=== PATIENT | male | born 1990 | race Caucasian/White ===

== ENCOUNTER 2017-12-30 13:36 | Emergency (ER) | payer MEDICAID ==
[~2017-12-30] VITALS: Ht 170.2 cm; Wt 72.7 kg
[~2017-12-30 13:36] MED LIST: CHOL400T32 PO; DILT180C53; GABA300C PO; HYDR-569 PO; LABE100T5 PO; LANTUS SQ; NOVLG SQ; TRAZ-219 PO
[2017-12-30 14:19] LABS: BASOPHILS # (AUTO) 0.1 X10'3 (0-0.2); BASOPHILS % (AUTO) 0.9 % (0-1); EOSINOPHILS # (AUTO) 0.6 X10'3 (0-0.9); EOSINOPHILS % (AUTO) 8.8 % (0-6); HEMATOCRIT 26.2 % (42.0-52.0); HEMOGLOBIN 8.8 g/dl (14.0-17.9); LYMPHOCYTES # (AUTO) 1.4 X10'3 (1.1-4.8); LYMPHOCYTES % (AUTO) 20.8 % (21-51); MEAN CORPUSCULAR HEMOGLOBIN 30.1 PG (27.0-31.0); MEAN CORPUSCULAR HGB CONC 33.5 % (33.0-36.5); MEAN CORPUSCULAR VOLUME 89.6 FL (78-98); MEAN PLATELET VOLUME 6.7 FL (7.4-10.4); MONOCYTES # (AUTO) 0.3 X10'3 (0-0.9); MONOCYTES % (AUTO) 5.2 % (2-12); NEUTROPHILS # (AUTO) 4.2 X10'3 (1.8-7.7); NEUTROPHILS % (AUTO) 64.3 % (42-75); PLATELET COUNT 244 X10'3 (140-440); RED BLOOD COUNT 2.92 X10'6 (4.70-6.10); RED CELL DISTRIBUTION WIDTH 16.3 % (11.5-14.5); WHITE BLOOD COUNT 6.6 X10'3 (4.5-11.0)
[2017-12-30 14:35] LABS: ALANINE AMINOTRANSFERASE 20 U/L (12-78); ALBUMIN 2.2 G/DL (3.4-5.0); ALBUMIN/GLOBULIN RATIO 0.7 (1.1-1.5); ALKALINE PHOSPHATASE 73 IU/L (46-116); ANION GAP 14 (8-16); ASPARTATE AMINO TRANSFERASE 23 U/L (10-37); BILIRUBIN,TOTAL 0.4 MG/DL (0.1-1.0); BLOOD UREA NITROGEN 30 MG/DL (7-18); BUN/CREATININE RATIO 4.2 (5.4-32.0); CALCIUM 7.7 MG/DL (8.5-10.1); CHLORIDE 104 MMOL/L (99-107); GLUCOSE 259 MG/DL (70-104); POTASSIUM 4.3 MMOL/L (3.5-5.1); SODIUM 139 MMOL/L (135-145); TOTAL CARBON DIOXIDE 20.6 MMOL/L (24-32); TOTAL PROTEIN 5.4 G/DL (6.4-8.2); eGFR 9 ML/MIN
[2017-12-30 14:59] LABS: ETHANOL < 0.010 GM/DL (0.0-0.010)
[2017-12-30] MEDS ORDERED: ondansetron 4mg rapidly disintigrating tab PO ONE (15:00)
[2017-12-30] MEDS ORDERED: morphine 4 MG/ML inj SYRINge IM ONE (15:00)
[2017-12-30 15:06] LABS: CLARITY,URINE CLEAR (Clear); COLOR,URINE YELLOW (Yellow); GLUCOSE, URINE 250 mg/dl (Neg); KETONES,URINE NEGATIVE (Neg); LEUKOCYTE ESTERASE ,URINE NEGATIVE (Neg); NITRITES, URINE NEGATIVE (Neg); OCCULT BLOOD,URINE MODERATE (Neg); PROTEIN,URINE >=300 mg/dl (Neg); UROBILINOGEN,URINE 0.2 E.U/dL (0.2-1.0)
[2017-12-30 15:13] LABS: UA COLLECTION TYPE CLN CATCH MIDSTREAM
[2017-12-30 15:14] LABS: MUCUS STRANDS FEW /LPF (Neg); SQUAMOUS EPITHELIAL CELL,UR MODERATE /LPF (FEW)
[2017-12-30 15:15] LABS: BACTERIA,URINE 2+ /HPF (Neg); RBC,URINE 0-2 /HPF (0-2); URINE AMPHETAMINE SCREEN NEGATIVE (Neg); URINE BARBITUATE SCREEN NEGATIVE (Neg); URINE BENZODIAZEPINES SCREEN NEGATIVE (Neg); URINE CANNABINOID SCREEN NEGATIVE (Neg); URINE COCAINE SCREEN NEGATIVE (Neg); URINE METHADONE SCREEN NEGATIVE (Neg); URINE OPIATE SCREEN POSITIVE (Neg); URINE PHENCYCLIDINE SCREEN NEGATIVE (Neg); WBC,URINE 20-30 /HPF (0-4)
[2017-12-30] MEDS ORDERED: morphine 4 MG/ML inj SYRINge IV ONE (15:35)
[2017-12-30] MEDS ORDERED: ondansetron/PF 4mg/2ml inj IV ONE (15:35)
[2017-12-30] MEDS ORDERED: ONDA8TAB9 PO (17:38)
[2017-12-30] MEDS ORDERED: HYDR-3965 PO (17:48)
[2017-12-30] MEDS ORDERED: BUPR150T8 PO (17:51)
[2017-12-30 18:03] VITALS: BP 176/85
== END 2017-12-30 18:05 | disposition home or self-care (01) ==
LOC: ER 13:36
DX: F32.9 Major depressive disorder, single episode, unspecified (principal); E11.22 Type 2 diabetes mellitus with diabetic chronic kidney disease; I13.2 Hypertensive heart and chronic kidney disease with heart failure and with stage 5 chronic kidney disease, or end stage renal disease; I50.9 Heart failure, unspecified; N18.6 End stage renal disease; Z99.2 Dependence on renal dialysis; E78.00 Pure hypercholesterolemia, unspecified; F12.90 Cannabis use, unspecified, uncomplicated; F15.90 Other stimulant use, unspecified, uncomplicated; Z79.4 Long term (current) use of insulin; Z79.899 Other long term (current) drug therapy; Z56.0 Unemployment, unspecified
CPT/HCPCS: 36415; 74176; 80053; 80305; 80320; 81001; 84443; 85025; 93005; 96372; 99285; J2270

== ENCOUNTER 2018-04-27 08:13 | Day surgery (SDC) | payer MEDICAID ==
[~2018-04-27] VITALS: Ht 170.2 cm; Wt 74.6 kg
[~2018-04-27 08:13] MED LIST changes: +HYDR-4383 PO; -HYDR-569 PO; +ONDA8TAB9 PO
[2018-04-27 08:30] VITALS: BP 128/79
[2018-04-27] MEDS ORDERED: midazolam 2 mg/2 ml injection IV PRN (09:15)
[2018-04-27] MEDS ORDERED: fentaNYL/PF 50MCG/1 ML 2ML syringe IV PRN (09:15)
[2018-04-27] MEDS ORDERED: heparin 1,000 units/ml 10ml inj ICATH ONE (09:15)
[2018-04-27] MEDS ORDERED: LIDOcaine 1%/PF 5ML 10 MG/ML VIAL SQ ONE (09:15)
[2018-04-27] MEDS ORDERED: LIDOcaine 1%/PF 5ML 10 MG/ML VIAL ONE (09:23)
[2018-04-27] MEDS ORDERED: heparin 1,000unit/ml 10ml vial 10 ML ONE (09:28)
[2018-04-27] MEDS ORDERED: midazolam 2 mg/2 ml injection ONE (09:29)
[2018-04-27] MEDS ORDERED: fentaNYL/PF 50MCG/1 ML 2ML syringe ONE (09:29)
[2018-04-27] MEDS ORDERED: LACT10SO PO (09:46)
[2018-04-27] MEDS ORDERED: AMIN700T PO (09:46)
[2018-04-27] MEDS ORDERED: LISI40TA4 PO (09:46)
[2018-04-27] MEDS ORDERED: MUPI22OI30 TOP (09:46)
[2018-04-27] MEDS ORDERED: LABE100T5 PO (09:46)
[2018-04-27] MEDS ORDERED: PHO667C PO (09:46)
[2018-04-27] MEDS ORDERED: FURO-150 PO (09:46)
[2018-04-27] MEDS ORDERED: GABA800T PO (09:46)
[2018-04-27] MEDS ORDERED: HYDR-4353 PO (09:46)
[2018-04-27] MEDS ORDERED: TRAZ-219 PO (09:46)
[2018-04-27] MEDS ORDERED: MEGE400O2 PO (09:46)
[2018-04-27 09:55] LABS: BASOPHILS # (AUTO) 0.1 X10'3 (0-0.2); BASOPHILS % (AUTO) 0.7 % (0-1); EOSINOPHILS # (AUTO) 0.7 X10'3 (0-0.9); EOSINOPHILS % (AUTO) 7.3 % (0-6); HEMOGLOBIN 7.5 g/dl (14.0-17.9); LYMPHOCYTES # (AUTO) 1.4 X10'3 (1.1-4.8); LYMPHOCYTES % (AUTO) 14.2 % (21-51); MEAN CORPUSCULAR HEMOGLOBIN 28.9 PG (27.0-31.0); MEAN CORPUSCULAR HGB CONC 32.6 % (33.0-36.5); MEAN CORPUSCULAR VOLUME 88.8 FL (78-98); MONOCYTES # (AUTO) 0.7 X10'3 (0-0.9); MONOCYTES % (AUTO) 6.9 % (2-12); NEUTROPHILS # (AUTO) 6.7 X10'3 (1.8-7.7); NEUTROPHILS % (AUTO) 70.9 % (42-75); PLATELET COUNT 349 X10'3 (140-440); RED BLOOD COUNT 2.59 X10'6 (4.70-6.10); RED CELL DISTRIBUTION WIDTH 16.5 % (11.5-14.5); WHITE BLOOD COUNT 9.5 X10'3 (4.5-11.0)
[2018-04-27 10:05] LABS: ALBUMIN 2.4 G/DL (3.4-5.0); ANION GAP 21 (8-16); BLOOD UREA NITROGEN 58 MG/DL (7-18); BUN/CREATININE RATIO 3.7 (5.4-32.0); CALCIUM 7.8 MG/DL (8.5-10.1); CHLORIDE 98 MMOL/L (99-107); CREATININE 15.51 MG/DL (0.60-1.10); GLUCOSE 197 MG/DL (70-104); POTASSIUM 5.1 MMOL/L (3.5-5.1); SODIUM 141 MMOL/L (135-145); TOTAL CARBON DIOXIDE 22.3 MMOL/L (24-32); eGFR 4 ML/MIN
[2018-04-27 10:20] VITALS: BP 126/83
[2018-04-27] MEDS ORDERED: HYDROcodone/acetaminophen 10/325mg tab PO PRN (11:00)
[2018-04-27 11:16] VITALS: BP 139/83
== END 2018-04-27 11:25 | disposition home or self-care (01) ==
LOC: SSTAY O 08:13
PROVIDERS: ATTEND Radiology Diagnostic Radiology
DX: E10.22 Type 1 diabetes mellitus with diabetic chronic kidney disease (principal); I12.0 Hypertensive chronic kidney disease with stage 5 chronic kidney disease or end stage renal disease; N18.6 End stage renal disease; E10.42 Type 1 diabetes mellitus with diabetic polyneuropathy; F32.9 Major depressive disorder, single episode, unspecified; F41.8 Other specified anxiety disorders; F43.10 Post-traumatic stress disorder, unspecified; H54.7 Unspecified visual loss; F17.210 Nicotine dependence, cigarettes, uncomplicated; Z99.2 Dependence on renal dialysis; Z86.2 Personal history of diseases of the blood and blood-forming organs and certain disorders involving the immune mechanism; Z86.69 Personal history of other diseases of the nervous system and sense organs; Z79.891 Long term (current) use of opiate analgesic; Z79.4 Long term (current) use of insulin; Z79.899 Other long term (current) drug therapy
CPT/HCPCS: 36415; 36558; 76937; 77001; 80048; 82948; 85025; 99152; 99153; C1750; J1644; J2001; J2250; J3010; A4620; A9270; C1894

== ENCOUNTER 2018-05-04 07:16 | Inpatient (IN) | payer MEDICAID | END 2018-05-08 19:15 | disposition home or self-care (01) | LOC: PCU 3S 07:16 ==

== ENCOUNTER 2018-12-26 15:54 | Emergency (ER) | payer MEDICAID ==
[~2018-12-26] VITALS: Ht 170.2 cm; Wt 65.0 kg
[~2018-12-26 15:54] MED LIST changes: -DILT180C53; +DILT240C51 PO; +FURO40TA4 PO; -GABA300C PO; +GABA600T13 PO; +HYDR-4353 PO; -HYDR-4383 PO; +INSU100V9 SQ; -LANTUS SQ; +LISI40TA4 PO; -ONDA8TAB9 PO; -TRAZ-219 PO
[2018-12-26 16:33] LABS: BASOPHILS # (AUTO) 0.1 X10'3 (0-0.2); BASOPHILS % (AUTO) 1.2 % (0-1); EOSINOPHILS # (AUTO) 0.6 X10'3 (0-0.9); EOSINOPHILS % (AUTO) 8.1 % (0-6); HEMATOCRIT 36.2 % (42.0-52.0); HEMOGLOBIN 12.2 g/dl (14.0-17.9); LYMPHOCYTES # (AUTO) 1.9 X10'3 (1.1-4.8); LYMPHOCYTES % (AUTO) 27.3 % (21-51); MEAN CORPUSCULAR HEMOGLOBIN 32.9 PG (27.0-31.0); MEAN CORPUSCULAR HGB CONC 33.8 g/dL (33.0-36.5); MEAN CORPUSCULAR VOLUME 97.6 FL (78-98); MEAN PLATELET VOLUME 8.5 FL (7.4-10.4); MONOCYTES # (AUTO) 0.6 X10'3 (0-0.9); MONOCYTES % (AUTO) 8.2 % (2-12); NEUTROPHILS # (AUTO) 3.9 X10'3 (1.8-7.7); NEUTROPHILS % (AUTO) 55.2 % (42-75); PLATELET COUNT 183 X10'3 (140-440); RED BLOOD COUNT 3.71 X10'6 (4.70-6.10); RED CELL DISTRIBUTION WIDTH 15.6 % (11.5-14.5); WHITE BLOOD COUNT 7.1 X10'3 (4.5-11.0)
[2018-12-26 16:54] LABS: PARTIAL THROMBOPLASTIN TIME 28 SECONDS (22-32)
[2018-12-26 16:57] LABS: ALANINE AMINOTRANSFERASE 11 U/L (12-78); ALBUMIN 3.3 G/DL (3.4-5.0); ALKALINE PHOSPHATASE 102 IU/L (46-116); ANION GAP 7 (8-16); ASPARTATE AMINO TRANSFERASE 20 U/L (10-37); BILIRUBIN,TOTAL 0.4 MG/DL (0.1-1.0); BLOOD UREA NITROGEN 33 MG/DL (7-18); BUN/CREATININE RATIO 3.8 (5.4-32.0); CHLORIDE 101 MMOL/L (99-107); GLUCOSE 153 MG/DL (70-104); SODIUM 139 MMOL/L (135-145); TOTAL CARBON DIOXIDE 31.1 MMOL/L (24-32); TOTAL PROTEIN 6.5 G/DL (6.4-8.2); eGFR 8 ML/MIN
[2018-12-26 17:01] LABS: POTASSIUM 5.5 MMOL/L (3.5-5.1)
[2018-12-26] MEDS ORDERED: normal saline 1000ML IV soln IVB ONE (17:35)
[2018-12-26] MEDS ORDERED: dextrose 50%-water 50ml dispensing syringe IV ONE (17:40)
[2018-12-26] MEDS ORDERED: insulin regular, human 10 units/0.1 ml syringe IV ONE (17:40)
[2018-12-26] MEDS ORDERED: sodium bicarbonate (0.9mEq/ml) 44.6 mEq/50ml syringe IV ONE (17:40)
[2018-12-26] MEDS ORDERED: sodium bicarbonate (8.4%) inj. 1 MEQ/ML ML IV ONE (17:55)
[2018-12-26 18:01] LABS: MAGNESIUM 2.5 MG/DL (1.5-2.4); PHOSPHORUS 4.7 MG/DL (2.3-4.5)
[2018-12-26] MEDS ORDERED: morphine 4 MG/ML inj SYRINge IV ONE (18:05)
[2018-12-26] MEDS ORDERED: ketorolac trometh. 30mg/ml inj. IV ONE (18:05)
[2018-12-26 18:47] VITALS: BP 169/99
== END 2018-12-26 19:18 | disposition home or self-care (01) ==
LOC: ER 15:54
DX: R07.89 Other chest pain (principal); E87.5 Hyperkalemia; M79.621 Pain in right upper arm; I13.2 Hypertensive heart and chronic kidney disease with heart failure and with stage 5 chronic kidney disease, or end stage renal disease; E11.22 Type 2 diabetes mellitus with diabetic chronic kidney disease; N18.6 End stage renal disease; I50.9 Heart failure, unspecified; E78.00 Pure hypercholesterolemia, unspecified; F17.210 Nicotine dependence, cigarettes, uncomplicated; F12.90 Cannabis use, unspecified, uncomplicated; F15.90 Other stimulant use, unspecified, uncomplicated; Z99.2 Dependence on renal dialysis; Z56.0 Unemployment, unspecified; Z79.4 Long term (current) use of insulin; Z79.899 Other long term (current) drug therapy
CPT/HCPCS: 36415; 71045; 80053; 83605; 83735; 84100; 84145; 84484; 85025; 85610; 85730; 87040; 93005; 96374; 96375; 99285; J1815; J1885; J2270

== ENCOUNTER 2019-02-10 21:01 | Inpatient (IN) | payer MEDICAID ==
[~2019-02-10] VITALS: Ht 170.2 cm; Wt 65.9 kg
--- NOTE | 2019-02-10 21:27 | NUR ---
PT REFUSED TO LET EMS PUT IV LINE IN PLACE. PT CURRENTLY REFUSING TO LET STAFF PLACE LINE OR DRAW LABS UNLESS HE CAN HAVE FOOD FIRST. PT IS DIABETIC. BLOOD GLUCOSE 112
--- NOTE | 2019-02-10 21:45 | NUR ---
PT CONTINUES TO REFUSE CARE UNLESS HE GETS FOOD. PT INFORMED THAT HE COULD NOT HAVE FOOD UNTIL CLEARED BY THE MD, IN THE EVENT THAT HE MIGHT NEED A PROCEDURE REQUIRING HIM TO HAVE AN EMPTY STOMACH. PT BECAME VERY IRATE AND ABUSIVE. PT WAS INFORMED THAT HE WAS WELCOME TO STAY AND BE TREATED, BUT HE WOULD NOT BE GETTING FOOD AT THIS TIME.
--- NOTE | 2019-02-10 21:54 | NUR ---
PT ALLOWED X RAY AND LAB TO COMPLETE TASKS
[2019-02-10] MEDS ORDERED: LORazepam 2 mg/ml vial IV ONE (22:05)
[2019-02-10] MEDS ORDERED: CefTRIAXone/D5W-Rocephin 1gm 50 ML IV ONE ×2 (22:05→23:35)
[2019-02-10 22:15] LABS: PARTIAL THROMBOPLASTIN TIME 31 SECONDS (22-32)
[2019-02-10 22:18] LABS: ALANINE AMINOTRANSFERASE 24 U/L (12-78); ALBUMIN 3.6 G/DL (3.4-5.0); ALKALINE PHOSPHATASE 137 IU/L (46-116); ANION GAP 5 (8-16); ASPARTATE AMINO TRANSFERASE 28 U/L (10-37); BILIRUBIN,TOTAL 0.8 MG/DL (0.1-1.0); BLOOD UREA NITROGEN 11 MG/DL (7-18); BUN/CREATININE RATIO 3.4 (5.4-32.0); CALCIUM 9.4 MG/DL (8.5-10.1); CHLORIDE 101 MMOL/L (99-107); CREATININE 3.28 MG/DL (0.60-1.10); GLUCOSE 100 MG/DL (70-104); SODIUM 143 MMOL/L (135-145); TOTAL CARBON DIOXIDE 36.7 MMOL/L (24-32); TOTAL PROTEIN 7.3 G/DL (6.4-8.2); eGFR 23 ML/MIN
[2019-02-10] MEDS ORDERED: iohexol 350MG/ML 100ml bottle IV ONE (22:30)
--- NOTE | 2019-02-10 22:44 | NUR ---
PT REFUSED WHILE ATTEMPTING IV, PT STATED HE "WANTED IT OUT".
[2019-02-11 00:05] LABS: HEMOGLOBIN 10.7 g/dl (14.0-17.9); MEAN CORPUSCULAR HGB CONC 34.7 g/dL (33.0-36.5); RED BLOOD COUNT 3.14 X10'6 (4.70-6.10); WHITE BLOOD COUNT 5.1 X10'3 (4.5-11.0)
[2019-02-11 00:06] LABS: BASOPHILS % (AUTO) 0.8 % (0-1); EOSINOPHILS # (AUTO) 0.3 X10'3 (0-0.9); EOSINOPHILS % (AUTO) 5.4 % (0-6); HEMATOCRIT 30.7 % (42.0-52.0); LYMPHOCYTES # (AUTO) 1.2 X10'3 (1.1-4.8); LYMPHOCYTES % (AUTO) 23.6 % (21-51); MEAN CORPUSCULAR VOLUME 97.8 FL (78-98); MEAN PLATELET VOLUME 8.1 FL (7.4-10.4); MONOCYTES # (AUTO) 0.5 X10'3 (0-0.9); MONOCYTES % (AUTO) 10.5 % (2-12); NEUTROPHILS % (AUTO) 59.7 % (42-75); PLATELET COUNT 119 X10'3 (140-440); RED CELL DISTRIBUTION WIDTH 15.8 % (11.5-14.5)
[2019-02-11] MEDS ORDERED: ondansetron/PF 4mg/2ml inj IV PRN (00:10)
[2019-02-11] MEDS ORDERED: glucagon, human recombinant 1mg kit SUBCUT PRN (00:25)
[2019-02-11] MEDS ORDERED: MESSAGE TO PHARMACY PO ONE (00:25)
[2019-02-11] MEDS ORDERED: dextrose ORAL solution 15 GM/59 ML bottle PO PRN (00:25)
[2019-02-11] MEDS ORDERED: dextrose 50%-water 50ml dispensing syringe IV PRN ×2 (00:25)
[2019-02-11] MEDS ORDERED: FURO80TA3 PO (02:18)
[2019-02-11] MEDS ORDERED: AMLO10TA4 PO (02:18)
[2019-02-11] MEDS ORDERED: HYDR100T27 PO (02:22)
[2019-02-11] MEDS ORDERED: ONDA4TAB6 PO (02:22)
[2019-02-11] MEDS ORDERED: TRAZ-219 PO (02:25)
[2019-02-11] MEDS ORDERED: CARV25TA2 PO (02:28)
--- NOTE | 2019-02-11 02:54 | NUR ---
Patient in room ED 4. I have received report from Fabby MALONEY ED and had the opportunity to ask questions and assume patient care. Patient is still has not arrived on the unit yet.
--- NOTE | 2019-02-11 02:55 | NUR ---
Pt brought to room 341 via w/c. oriented to room and routine. Addendum: 02/11/19 at 0307 by Zarina Christian RN Amended: Links added.
[2019-02-11 03:00] VITALS: BP 179/119
[2019-02-11] MEDS: HYDROcodone/acetaminophen 5mg/325mg tablet PO PRN ×2 (03:32→08:39)
--- NOTE | 2019-02-11 03:48 | NUR ---
LEGALLY BLIND. SHOWED PT CALL LIGHT SYSTEM, BED CONTROLS, TABLE AND WHERE THINGS ARE PLACED. PT IS AWARE AND ABLE TO USE CALL LIGHT AND CONTROLS Addendum: 02/11/19 at 0349 by Zarina Christian RN Amended: Links added.
--- NOTE | 2019-02-11 04:15 | NUR ---
patient is on dialysis and stated that he does not produce enough urine. His normal voiding pattern is every after three days. Addendum: 02/11/19 at 0421 by Amber Brown RN Amended: Links added.
--- NOTE | 2019-02-11 06:50 | NUR ---
Problems reprioritized. Patient report given, questions answered & plan of care reviewed with Bernice MALONEY.
[2019-02-11 08:00] VITALS: BP 179/118
[2019-02-11] MEDS: CefTRIAXone 2gm/D5W 50ml 50 ML IV SCH (08:33)
[2019-02-11] MEDS: insulin Lispro (HumaLOG) vial - multi-dose SQ SCH ×3 (08:37→22:47)
--- NOTE | 2019-02-11 09:00 | NUR ---
Pt. b/p noted. has bp Meds on med req. TRANG Whelan notified and completed med req. Will administer BP Meds and reevaluate.
[2019-02-11] MEDS ORDERED: FLU VACC QS2019-20 36MOS UP/PF 60 MCG/0.5 ML SYRINGE IMVAC ONE (10:00)
[2019-02-11] MEDS ORDERED: pneumococcal 23-VAL P-sac vacc 25 mcg/0.5ml vial IMVAC ONE (10:00)
[2019-02-11 10:37] LABS: PHOSPHORUS 3.9 MG/DL (2.3-4.5)
[2019-02-11] MEDS ORDERED: carVEDilol 12.5mg tablet PO ONE (11:00)
[2019-02-11] MEDS ORDERED: furosemide 40mg tablet PO ONE (11:00)
[2019-02-11] MEDS ORDERED: hydrALAZINE 25 MG tablet PO ONE (11:00)
[2019-02-11] MEDS ORDERED: diltiazem CD 120mg capsule (once-daily) PO ONE (11:00)
[2019-02-11] MEDS ORDERED: lisinopril 20mg tablet PO ONE (11:00)
[2019-02-11] MEDS ORDERED: amLODIPine 5mg tablet PO ONE (11:00)
[2019-02-11] MEDS ORDERED: ipratropium/albuterol 3ml nebule NEB PRN (11:15)
--- NOTE | 2019-02-11 11:26 | NUR ---
Talked with Viridiana HELLER concerning giving HTN medications with Lasix all at once, she states that it is ok to give all medications ordered all at once. Medications given, primary RN aware and states she will check his BP regularly.
[2019-02-11] MEDS: labetalol 100mg tablet PO SCH ×2 (11:30→20:08)
[2019-02-11 12:00] VITALS: BP_SYST 145; BP_SYST 185; BP_DIAS 131; BP_DIAS 94
[2019-02-11] MEDS ORDERED: INSULIN ASPART 5 UNIT SQ SCH (12:00)
--- NOTE | 2019-02-11 13:36 | NUR ---
Pt. bladder scanned. Anuric at this time.
[2019-02-11 14:24] VITALS: BP 130/82
[2019-02-11] MEDS: ESCITALOPRAM OXALATE 5 MG TABLET PO SCH (15:16)
[2019-02-11] MEDS: acetaminophen 325mg tablet PO PRN ×2 (15:22→20:08)
[2019-02-11] MEDS ORDERED: acetaminophen 325mg tablet PO PRN (15:25)
[2019-02-11] MEDS: dextrose ORAL solution 15 GM/59 ML bottle PO PRN ×2 (15:53→16:13)
[2019-02-11 17:00] VITALS: BP 152/101
--- NOTE | 2019-02-11 17:00 | NUR ---
Bladder scanned. 70 ml in bladder. Pt states it is normal for him to be anuric.
[2019-02-11] MEDS: hydrALAZINE 25 MG tablet PO SCH (17:14)
--- NOTE | 2019-02-11 18:55 | NUR ---
Patient in room [facility] 341. I have received report from Bernice MALONEY and had the opportunity to ask questions and assume patient care. Pt currently sleeping on his left side with no signs of distress. Will continue to monitor.
--- NOTE | 2019-02-11 19:17 | NUR ---
GAVE REPORT TO JORGE MALONEY.
[2019-02-11 20:00] VITALS: BP 143/92
[2019-02-11] MEDS ORDERED: non-formulary drug (Insulin Glargine,Hum.rec.anlog (Lantus) 20 UNIT) SQ SCH (20:00)
[2019-02-11] MEDS: carVEDilol 12.5mg tablet PO SCH (20:09)
[2019-02-11] MEDS: furosemide 40mg tablet PO SCH (20:10)
[2019-02-11] MEDS: traZODone 50mg tablet PO SCH (20:19)
[2019-02-11] MEDS: hydrOXYzine 25 MG tablet PO PRN (20:19)
[2019-02-11] MEDS: insulin glargine (Lantus) pen - multi-dose SQ SCH (21:00)
[2019-02-12] VITALS: BP 154/83
[2019-02-12] MEDS: acetaminophen 325mg tablet PO PRN (05:59)
--- NOTE | 2019-02-12 06:14 | NUR ---
Problems reprioritized. Patient report given, questions answered & plan of care reviewed with Bernice MALONEY.
[2019-02-12 06:28] LABS: ALBUMIN 3.1 G/DL (3.4-5.0); ANION GAP 9 (8-16); ASPARTATE AMINO TRANSFERASE 18 U/L (10-37); BILIRUBIN,TOTAL 0.5 MG/DL (0.1-1.0); BLOOD UREA NITROGEN 27 MG/DL (7-18); BUN/CREATININE RATIO 4.5 (5.4-32.0); CALCIUM 8.8 MG/DL (8.5-10.1); CHLORIDE 96 MMOL/L (99-107); CREATININE 5.96 MG/DL (0.60-1.10); GLUCOSE 289 MG/DL (70-104); MAGNESIUM 1.9 MG/DL (1.5-2.4); PHOSPHORUS 4.8 MG/DL (2.3-4.5); POTASSIUM 4.7 MMOL/L (3.5-5.1); SODIUM 135 MMOL/L (135-145); TOTAL CARBON DIOXIDE 30.4 MMOL/L (24-32); TOTAL PROTEIN 6.3 G/DL (6.4-8.2); eGFR 12 ML/MIN
[2019-02-12 06:29] LABS: ALANINE AMINOTRANSFERASE 24 U/L (12-78); ALKALINE PHOSPHATASE 133 IU/L (46-116)
[2019-02-12 07:40] LABS: BASOPHILS # (AUTO) 0.1 X10'3 (0-0.2); BASOPHILS % (AUTO) 1.4 % (0-1); EOSINOPHILS # (AUTO) 0.4 X10'3 (0-0.9); EOSINOPHILS % (AUTO) 7.7 % (0-6); HEMATOCRIT 28.8 % (42.0-52.0); HEMOGLOBIN 9.8 g/dl (14.0-17.9); LYMPHOCYTES % (AUTO) 19.1 % (21-51); MEAN CORPUSCULAR HEMOGLOBIN 33.7 PG (27.0-31.0); MEAN CORPUSCULAR VOLUME 99.1 FL (78-98); MEAN PLATELET VOLUME 8.9 FL (7.4-10.4); MONOCYTES # (AUTO) 0.4 X10'3 (0-0.9); MONOCYTES % (AUTO) 7.8 % (2-12); NEUTROPHILS # (AUTO) 3.5 X10'3 (1.8-7.7); PLATELET COUNT 111 X10'3 (140-440); RED CELL DISTRIBUTION WIDTH 16.1 % (11.5-14.5); WHITE BLOOD COUNT 5.4 X10'3 (4.5-11.0)
[2019-02-12 08:00] VITALS: BP 156/102
[2019-02-12] MEDS: furosemide 40mg tablet PO SCH ×2 (08:59→21:09)
[2019-02-12] MEDS: amLODIPine 5mg tablet PO SCH (08:59)
[2019-02-12] MEDS: diltiazem CD 120mg capsule (once-daily) PO SCH (08:59)
[2019-02-12] MEDS: lisinopril 20mg tablet PO SCH (09:00)
[2019-02-12] MEDS: ESCITALOPRAM OXALATE 5 MG TABLET PO SCH (09:00)
[2019-02-12] MEDS: labetalol 100mg tablet PO SCH ×2 (09:00→21:08)
--- NOTE | 2019-02-12 09:00 | NUR ---
Called Rahel to verify that it was ok to administer Lasix dose with current kidney function. MD connor. also gave orders to cover pt for correctional BG only - no nutritional coverage r/t low BG yesterday. Will cont. to monitor on my shift.
[2019-02-12] MEDS: hydrALAZINE 25 MG tablet PO SCH ×3 (09:01→17:32)
[2019-02-12] MEDS: carVEDilol 12.5mg tablet PO SCH ×2 (09:01→21:08)
[2019-02-12] MEDS: CefTRIAXone 2gm/D5W 50ml 50 ML IV SCH (09:01)
[2019-02-12] MEDS: insulin Lispro (HumaLOG) vial - multi-dose SQ SCH ×3 (09:05→18:37)
[2019-02-12 12:06] VITALS: BP 124/77
--- NOTE | 2019-02-12 12:09 | NUR ---
Md licea pt. has been anuric for several days.
[2019-02-12] MEDS: ibuprofen tablet 400 MG TABLET PO SCH (17:32)
--- NOTE | 2019-02-12 18:29 | NUR ---
Gave report to Dorota MALONEY. passed on that night Lantus should be given per protocol per MD Mcginnis.
[2019-02-12] MEDS: HYDROcodone/acetaminophen 10/325mg tab PO PRN (18:40)
--- NOTE | 2019-02-12 18:56 | NUR ---
Patient in room [facility] 341. I have received report from Bernice MALONEY and had the opportunity to ask questions and assume patient care.
[2019-02-12 20:00] VITALS: BP 124/79
[2019-02-12] MEDS: lactobacillus rhamnosus 10,000 MMU CELLS/CAPSULE PO SCH (21:07)
[2019-02-12] MEDS: hydrOXYzine 25 MG tablet PO PRN (21:07)
[2019-02-12] MEDS: traZODone 50mg tablet PO SCH (21:10)
[2019-02-12] MEDS: insulin glargine (Lantus) pen - multi-dose SQ SCH (21:14)
[2019-02-13 00:04] VITALS: BP 95/58
[2019-02-13] MEDS: HYDROcodone/acetaminophen 10/325mg tab PO PRN ×4 (04:07→19:16)
[2019-02-13 05:09] LABS: BASOPHILS # (AUTO) 0.1 X10'3 (0-0.2); BASOPHILS % (AUTO) 1.3 % (0-1); EOSINOPHILS # (AUTO) 0.6 X10'3 (0-0.9); EOSINOPHILS % (AUTO) 9.5 % (0-6); HEMATOCRIT 28.7 % (42.0-52.0); LYMPHOCYTES # (AUTO) 1.5 X10'3 (1.1-4.8); MEAN CORPUSCULAR HEMOGLOBIN 34.6 PG (27.0-31.0); MEAN CORPUSCULAR HGB CONC 34.9 g/dL (33.0-36.5); MEAN CORPUSCULAR VOLUME 99.3 FL (78-98); MEAN PLATELET VOLUME 8.9 FL (7.4-10.4); MONOCYTES # (AUTO) 0.4 X10'3 (0-0.9); MONOCYTES % (AUTO) 6.6 % (2-12); NEUTROPHILS # (AUTO) 3.5 X10'3 (1.8-7.7); NEUTROPHILS % (AUTO) 57.6 % (42-75); PLATELET COUNT 125 X10'3 (140-440); RED BLOOD COUNT 2.89 X10'6 (4.70-6.10); RED CELL DISTRIBUTION WIDTH 16.3 % (11.5-14.5); WHITE BLOOD COUNT 6.1 X10'3 (4.5-11.0)
[2019-02-13 05:18] LABS: ALANINE AMINOTRANSFERASE 30 U/L (12-78); ALBUMIN 2.9 G/DL (3.4-5.0); ALBUMIN/GLOBULIN RATIO 0.9 (1.1-1.5); ALKALINE PHOSPHATASE 154 IU/L (46-116); ANION GAP 8 (8-16); ASPARTATE AMINO TRANSFERASE 24 U/L (10-37); BILIRUBIN,TOTAL 0.3 MG/DL (0.1-1.0); BLOOD UREA NITROGEN 42 MG/DL (7-18); BUN/CREATININE RATIO 5.6 (5.4-32.0); CALCIUM 8.8 MG/DL (8.5-10.1); CHLORIDE 95 MMOL/L (99-107); CREATININE 7.55 MG/DL (0.60-1.10); GLUCOSE 212 MG/DL (70-104); MAGNESIUM 2.2 MG/DL (1.5-2.4); PHOSPHORUS 5.7 MG/DL (2.3-4.5); POTASSIUM 5.2 MMOL/L (3.5-5.1); SODIUM 134 MMOL/L (135-145); TOTAL CARBON DIOXIDE 31.2 MMOL/L (24-32); eGFR 9 ML/MIN
--- NOTE | 2019-02-13 06:51 | NUR ---
Problems reprioritized. Patient report given, questions answered & plan of care reviewed with Mikki MALONEY.
[2019-02-13 07:00] VITALS: BP 131/77
[2019-02-13] MEDS ORDERED: heparin 1,000unit/ml 10ml vial 10 ML IV ONE (08:00)
[2019-02-13] MEDS ORDERED: epoetin 20,000 units/ml inj IV ONE (08:00)
[2019-02-13] MEDS ORDERED: heparin 1,000 units/ml 10ml inj HE ONE ×2 (08:00)
[2019-02-13] MEDS ORDERED: normal saline 1000ml 250 ML IV PRN (08:00)
[2019-02-13] MEDS: CefTRIAXone 2gm/D5W 50ml 50 ML IV SCH (08:29)
[2019-02-13] MEDS: ibuprofen tablet 400 MG TABLET PO SCH ×3 (08:30→16:36)
[2019-02-13] MEDS: diltiazem CD 120mg capsule (once-daily) PO SCH (08:30)
[2019-02-13] MEDS: lactobacillus rhamnosus 10,000 MMU CELLS/CAPSULE PO SCH (08:30)
[2019-02-13] MEDS: carVEDilol 12.5mg tablet PO SCH (08:30)
[2019-02-13] MEDS: lisinopril 20mg tablet PO SCH (08:30)
[2019-02-13] MEDS: labetalol 100mg tablet PO SCH (08:30)
[2019-02-13] MEDS: furosemide 40mg tablet PO SCH (08:30)
[2019-02-13] MEDS: hydrALAZINE 25 MG tablet PO SCH ×3 (08:30→15:27)
[2019-02-13] MEDS: amLODIPine 5mg tablet PO SCH (08:30)
[2019-02-13] MEDS: ESCITALOPRAM OXALATE 5 MG TABLET PO SCH (08:31)
[2019-02-13 11:58] VITALS: BP 127/77
[2019-02-13] MEDS: insulin Lispro (HumaLOG) vial - multi-dose SQ SCH (14:23)
[2019-02-13] MEDS ORDERED: LEVO500T2 PO (15:40)
[2019-02-13] MEDS: hydrOXYzine 25 MG tablet PO PRN (16:05)
--- NOTE | 2019-02-13 18:52 | NUR ---
Patient in room [facility] 341. I have received report from Mikki MALONEY and had the opportunity to ask questions and assume patient care.
--- NOTE | 2019-02-13 23:14 | NUR ---
Removed pt IV and helped him change into his clothes. 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 Meds were retrieved from the pharmacy and given to pt. Prescription fpr antibiotics was electronically sent to the pharmacy in [facility] at pt request. Pt was taken via wheelchair downstairs where a cab was waiting for him to take him back to [place]. Pt had no signs of distress at the time of discharge.
[2019-02-15] MEDS ORDERED: FLU VACC QS2019-20 36MOS UP/PF 60 MCG/0.5 ML SYRINGE IMVAC ONE (08:00)
== END 2019-02-13 19:22 | disposition home or self-care (01) | DRG 139 ==
LOC: ER 21:01 → ED HOLD 02-11 00:07 → SUR 3N 02-11 03:05
PROVIDERS: ADMIT Internal Medicine Critical Care Medicine; ATTEND Internal Medicine Critical Care Medicine
PROC: BP2U1ZZ Computerized Tomography (CT Scan) of Left Upper Extremity using Low Osmolar Contrast (ICD-10-PCS; 2019-02-10)
PROC: 3E0234Z Introduction of Serum, Toxoid and Vaccine into Muscle, Percutaneous Approach (ICD-10-PCS; principal; 2019-02-11)
PROC: 5A1D70Z Performance of Urinary Filtration, Intermittent, Less than 6 Hours Per Day (ICD-10-PCS; 2019-02-13)
DX: J18.1 Lobar pneumonia, unspecified organism (principal); I13.2 Hypertensive heart and chronic kidney disease with heart failure and with stage 5 chronic kidney disease, or end stage renal disease; J90 Pleural effusion, not elsewhere classified; E10.22 Type 1 diabetes mellitus with diabetic chronic kidney disease; N18.6 End stage renal disease; J44.0 Chronic obstructive pulmonary disease with (acute) lower respiratory infection; I50.9 Heart failure, unspecified; E78.00 Pure hypercholesterolemia, unspecified; L03.114 Cellulitis of left upper limb; F12.90 Cannabis use, unspecified, uncomplicated; F17.210 Nicotine dependence, cigarettes, uncomplicated; F32.9 Major depressive disorder, single episode, unspecified; F41.1 Generalized anxiety disorder; M79.632 Pain in left forearm; M79.89 Other specified soft tissue disorders; Z99.2 Dependence on renal dialysis; Z23 Encounter for immunization; Z79.899 Other long term (current) drug therapy; Z79.4 Long term (current) use of insulin; Z71.6 Tobacco abuse counseling
CPT/HCPCS: 36415; 71045; 73206; 80053; 82948; 83735; 84100; 84484; 85025; 85610; 85730; 87081; 93005; 94760; 99285; G0257; G0378; J0696; J1644; J1815; J2060; J2405; Q4081; Q9967; Z7610

== ENCOUNTER 2019-04-21 07:29 | Inpatient (IN) | payer MEDICARE, MEDICAID ==
[~2019-04-21] VITALS: Ht 162.6 cm; Wt 59.1 kg
[~2019-04-21 07:29] MED LIST changes: +AMLO10TA4 PO; +CARV25TA2 PO; -CHOL400T32 PO; -FURO40TA4 PO; +FURO80TA3 PO; -HYDR-4353 PO; +HYDR100T27 PO; -INSU100V9 SQ; -NOVLG SQ; +ONDA4TAB6 PO; +TRAZ-219 PO
[2019-04-21 09:20] LABS: BASOPHILS # (AUTO) 0.1 X10'3 (0-0.2); BASOPHILS % (AUTO) 1.2 % (0-1); EOSINOPHILS % (AUTO) 0.5 % (0-6); HEMATOCRIT 33.8 % (42.0-52.0); HEMOGLOBIN 11.4 g/dl (14.0-17.9); LYMPHOCYTES # (AUTO) 0.8 X10'3 (1.1-4.8); LYMPHOCYTES % (AUTO) 10.6 % (21-51); MEAN CORPUSCULAR HEMOGLOBIN 34.3 PG (27.0-31.0); MEAN CORPUSCULAR HGB CONC 33.8 g/dL (33.0-36.5); MEAN CORPUSCULAR VOLUME 101.2 FL (78-98); MEAN PLATELET VOLUME 7.7 FL (7.4-10.4); MONOCYTES # (AUTO) 0.7 X10'3 (0-0.9); MONOCYTES % (AUTO) 9.8 % (2-12); NEUTROPHILS # (AUTO) 5.9 X10'3 (1.8-7.7); NEUTROPHILS % (AUTO) 77.9 % (42-75); PLATELET COUNT 156 X10'3 (140-440); RED BLOOD COUNT 3.33 X10'6 (4.70-6.10); RED CELL DISTRIBUTION WIDTH 17.4 % (11.5-14.5); WHITE BLOOD COUNT 7.6 X10'3 (4.5-11.0)
[2019-04-21 09:35] LABS: ALANINE AMINOTRANSFERASE 121 U/L (12-78); ALBUMIN 3.4 G/DL (3.4-5.0); ALKALINE PHOSPHATASE 580 IU/L (46-116); ANION GAP 8 (8-16); ASPARTATE AMINO TRANSFERASE 89 U/L (10-37); BILIRUBIN,TOTAL 0.6 MG/DL (0.1-1.0); BLOOD UREA NITROGEN 35 MG/DL (7-18); BUN/CREATININE RATIO 5.4 (5.4-32.0); CALCIUM 9.4 MG/DL (8.5-10.1); CHLORIDE 98 MMOL/L (99-107); CREATININE 6.53 MG/DL (0.60-1.10); ETHANOL < 0.010 GM/DL (0.0-0.010); GLUCOSE 150 MG/DL (70-104); MAGNESIUM 2.1 MG/DL (1.5-2.4); POTASSIUM 4.7 MMOL/L (3.5-5.1); SODIUM 138 MMOL/L (135-145); TOTAL PROTEIN 6.9 G/DL (6.4-8.2); eGFR 10 ML/MIN
[2019-04-21 09:40] LABS: HEMOGLOBIN A1C 7.5 % (4.5-6.2)
[2019-04-21] MEDS ORDERED: acetaminophen 325mg tablet PO PRN (10:20)
--- NOTE | 2019-04-21 12:25 | NUR ---
PT RESTING ON BACK RR EQUAL AND UNLABORED
--- NOTE | 2019-04-21 14:27 | NUR ---
[employer] PHOTOGRAPHER REQUESTED THAT I REVIEW PATIENTS CHART FOR POSSIBLE ADMISSION TO ACCE
--- NOTE | 2019-04-21 15:33 | NUR ---
Pt resting in bed appears in no acute distress.
--- NOTE | 2019-04-21 16:40 | NUR ---
Received patient report from ER nurse Miguel MALONEY. Awaiting arrival to room 354C.
--- NOTE | 2019-04-21 16:43 | NUR ---
report called to Nohemi MALONEY, pt case and tx plan discussed, floor RN agrees to assume care of patient, pt to be transported on monitor by RN .
[2019-04-21 17:03] VITALS: BP 154/91
[2019-04-21] MEDS ORDERED: glucagon, human recombinant 1mg kit SUBCUT PRN (17:30)
[2019-04-21] MEDS ORDERED: MESSAGE TO PHARMACY PO ONE (17:30)
[2019-04-21] MEDS ORDERED: dextrose ORAL solution 15 GM/59 ML bottle PO PRN (17:30)
[2019-04-21] MEDS ORDERED: dextrose 50%-water 50ml dispensing syringe IV PRN ×2 (17:30)
--- NOTE | 2019-04-21 17:30 | NUR ---
Gisselle Whelan called due to pt complaining of pain. MD to input orders.
--- NOTE | 2019-04-21 18:40 | NUR ---
Received report from Nohemi MALONEY pt is resting on RA, breaths even and unlabored in no apparent distress
--- NOTE | 2019-04-21 18:44 | NUR ---
Problems reprioritized. Patient report given, questions answered & plan of care reviewed with Conchita MALONEY.
[2019-04-21 19:30] VITALS: BP 153/90
[2019-04-21] MEDS ORDERED: HYDROcodone/acetaminophen 10/325mg tab PO ONE (20:00)
[2019-04-21] MEDS ORDERED: CARVEDILOL 25 MG PO SCH (20:00)
[2019-04-21] MEDS: furosemide 40mg tablet PO SCH (20:09)
[2019-04-21] MEDS: carVEDilol 12.5mg tablet PO SCH (20:10)
[2019-04-21] MEDS: labetalol 100mg tablet PO SCH (20:11)
[2019-04-21] MEDS: heparin, porcine 5000 units/ml vial SQ SCH (20:12)
[2019-04-21] MEDS: ondansetron 4mg rapidly disintigrating tab PO PRN (20:12)
--- NOTE | 2019-04-21 20:32 | NUR ---
Spoke to Ray Estrada about pain medication for the patients. per Patient he says he takes 2 norco 10s, Natalie ordered a one time dose or [place] 10. when I told this to pt he became upset stating he wanted a new doctor and that he was allowed one because he has medical. 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
[2019-04-21] MEDS: insulin glargine (Lantus) pen - multi-dose SQ SCH (21:00)
[2019-04-21] MEDS: gabapentin 300mg capsule PO SCH (21:00)
[2019-04-21] MEDS: traZODone 50mg tablet PO SCH (21:00)
--- NOTE | 2019-04-21 21:41 | NUR ---
Spoke with Ray Estrada regarding patient taking 10mg Valium TID PRN, due to there being no documentation on the patients med reconciliation regarding valium Ray Estrada decided he was not comfortable with prescribing any for the patient. I also asked for clarification regarding the 15 units of Lantus the patient states he takes, Natalie stated to wait until pt meets hyperglycemic protocol.
[2019-04-21] MEDS ORDERED: diazepam 5mg tablet PO ONE (22:40)
--- NOTE | 2019-04-21 23:26 | NUR ---
informed pt that the doctor wouldn't approve [facility] order for Valium, the patient gave me his prescription bottle for valium, called the doctor back and informed him, he ordered a one time dose of the 10mg of Valium and for the daytime doctor to reevaluate in the morning.
[2019-04-21] MEDS: hydrALAZINE 25 MG tablet PO SCH (23:57)
[2019-04-22] VITALS: BP_SYST 113; BP_SYST 131; BP_DIAS 72; BP_DIAS 92
--- NOTE | 2019-04-22 06:42 | NUR ---
Gave report to Argentina MALONEY pt is semi awake on RA requesting ice chips
[2019-04-22 07:00] VITALS: BP 154/88
[2019-04-22] MEDS ORDERED: non-formulary drug (Diltiazem HCl (Cartia Xt) 1 CAP) PO SCH (08:00)
[2019-04-22] MEDS: heparin, porcine 5000 units/ml vial SQ SCH ×2 (08:00→20:00)
[2019-04-22] MEDS ORDERED: diazepam 5mg tablet PO PRN (08:40)
[2019-04-22 08:58] LABS: BASOPHILS # (AUTO) 0.1 X10'3 (0-0.2); BASOPHILS % (AUTO) 1.3 % (0-1); EOSINOPHILS # (AUTO) 0.6 X10'3 (0-0.9); HEMATOCRIT 35.1 % (42.0-52.0); HEMOGLOBIN 11.7 g/dl (14.0-17.9); LYMPHOCYTES # (AUTO) 1.6 X10'3 (1.1-4.8); MEAN CORPUSCULAR HEMOGLOBIN 33.8 PG (27.0-31.0); MEAN CORPUSCULAR HGB CONC 33.5 g/dL (33.0-36.5); MEAN CORPUSCULAR VOLUME 101.1 FL (78-98); MEAN PLATELET VOLUME 8.2 FL (7.4-10.4); MONOCYTES # (AUTO) 0.5 X10'3 (0-0.9); MONOCYTES % (AUTO) 7.5 % (2-12); NEUTROPHILS # (AUTO) 4.2 X10'3 (1.8-7.7); NEUTROPHILS % (AUTO) 59.2 % (42-75); PLATELET COUNT 148 X10'3 (140-440); RED BLOOD COUNT 3.47 X10'6 (4.70-6.10); RED CELL DISTRIBUTION WIDTH 17.6 % (11.5-14.5); WHITE BLOOD COUNT 7.1 X10'3 (4.5-11.0)
[2019-04-22] MEDS: labetalol 100mg tablet PO SCH ×2 (08:59→20:32)
[2019-04-22] MEDS: amLODIPine 5mg tablet PO SCH (08:59)
[2019-04-22] MEDS: hydrALAZINE 25 MG tablet PO SCH ×2 (08:59→15:53)
[2019-04-22] MEDS: diltiazem CD 120mg capsule (once-daily) PO SCH (08:59)
[2019-04-22] MEDS: carVEDilol 12.5mg tablet PO SCH ×2 (08:59→20:33)
[2019-04-22] MEDS: furosemide 40mg tablet PO SCH ×2 (09:01→20:33)
[2019-04-22] MEDS: lisinopril 20mg tablet PO SCH (09:01)
[2019-04-22] MEDS: insulin Lispro (HumaLOG) vial - multi-dose SQ SCH ×3 (09:05→19:51)
[2019-04-22 09:07] LABS: ALANINE AMINOTRANSFERASE 115 U/L (12-78); ALBUMIN 3.3 G/DL (3.4-5.0); ALBUMIN/GLOBULIN RATIO 1.1 (1.1-1.5); ALKALINE PHOSPHATASE 556 IU/L (46-116); ANION GAP 11 (8-16); ASPARTATE AMINO TRANSFERASE 75 U/L (10-37); BILIRUBIN,TOTAL 0.7 MG/DL (0.1-1.0); BLOOD UREA NITROGEN 49 MG/DL (7-18); BUN/CREATININE RATIO 5.9 (5.4-32.0); CALCIUM 9.4 MG/DL (8.5-10.1); CHLORIDE 96 MMOL/L (99-107); CREATININE 8.25 MG/DL (0.60-1.10); GLUCOSE 314 MG/DL (70-104); MAGNESIUM 2.3 MG/DL (1.5-2.4); PHOSPHORUS 7.5 MG/DL (2.3-4.5); SODIUM 136 MMOL/L (135-145); TOTAL CARBON DIOXIDE 29.5 MMOL/L (24-32); TOTAL PROTEIN 6.4 G/DL (6.4-8.2); eGFR 8 ML/MIN
[2019-04-22 09:11] LABS: POTASSIUM 6.8 MMOL/L (3.5-5.1)
--- NOTE | 2019-04-22 09:12 | NUR ---
K+ 6.8 . Value called into Viridiana HELLER. 1 time dose of Kayexalate ordered. No redraw needed for lab per Viridiana. Pt will likely go home with Kayexalate PO. Pt refuses Am assessment, heparin and is verbally abusive toward staff. Wants pain med but Viridiana Whelan addressed this issue and unwilling to give pain med only valium that is a verified medication that patient gets at home. External med history does not show that he continually gets pain meds.
[2019-04-22] MEDS ORDERED: sodium polystyrene sulfonate 15gm/60ml oral suspension PO ONE (09:25)
[2019-04-22] MEDS ORDERED: HYDROcodone/acetaminophen 10/325mg tab PO ONE (09:25)
[2019-04-22] MEDS: fludrocortisone acetate 0.1mg tablet PO SCH (10:04)
[2019-04-22 11:00] VITALS: BP 152/98
--- NOTE | 2019-04-22 11:20 | NUR ---
Patient refuses 2 RN skin check
--- NOTE | 2019-04-22 11:21 | NUR ---
Patient refused AM assessment. Gisselle HELLER aware
--- NOTE | 2019-04-22 14:24 | NUR ---
Pt Left eye very swollen, have notified Gisselle HELLER. She is going to come look at it.
[2019-04-22] MEDS: HYDROcodone/acetaminophen 10/325mg tab PO PRN (15:56)
--- NOTE | 2019-04-22 18:30 | NUR ---
Problems reprioritized. Patient report given, questions answered & plan of care reviewed with Yoselyn MALONEY .
[2019-04-22] MEDS: diazepam 5mg tablet PO PRN (18:54)
--- NOTE | 2019-04-22 19:14 | NUR ---
DM Consult: A1C 7.5 pt hx T1DM. Pt in restroom and requesting RN aid during RD visit. RN notified and DM ed w/ RD contact information left at pt bedside. Pt hx ESRD on HD and was encouraged to contact RD if further nutrition DM questions/concerns. Likely will see HD RD at dialysis center. Addendum: 04/22/19 at [address] Amended: Links added.
[2019-04-22] MEDS: ondansetron 4mg rapidly disintigrating tab PO PRN (19:40)
[2019-04-22 20:33] VITALS: BP 144/93
[2019-04-22] MEDS: gabapentin 300mg capsule PO SCH (21:00)
[2019-04-22] MEDS: insulin glargine (Lantus) pen - multi-dose SQ SCH (21:00)
[2019-04-22] MEDS: traZODone 50mg tablet PO SCH (21:00)
[2019-04-22] MEDS: dextrose ORAL solution 15 GM/59 ML bottle PO PRN ×2 (21:49→22:14)
--- NOTE | 2019-04-22 22:30 | NUR ---
0 blood glucose 60 i glucose shot given then went to 55 another glucose shot given increased to 108 patient must requalify for diabetic protocol
[2019-04-23] VITALS: BP 148/89
[2019-04-23] MEDS: HYDROcodone/acetaminophen 10/325mg tab PO PRN ×2 (00:41→09:08)
[2019-04-23] MEDS: hydrALAZINE 25 MG tablet PO SCH ×3 (00:42→16:18)
[2019-04-23] MEDS: diazepam 5mg tablet PO PRN ×2 (01:28→12:53)
--- NOTE | 2019-04-23 03:27 | NUR ---
PATIENT REPORTS 10/ PAIN FROM L ARM FISTULA WE GAVE HIM NORCO 10 AT 00:30 TALKED WITH KRISTI IBARRA AND HE SAID NO TO MORE PAIN MEDICATION Patient upset started hitting arms against side rails to hurt himself notified kenyon received sitter order
[2019-04-23 06:00] VITALS: BP 104/54
--- NOTE | 2019-04-23 06:30 | NUR ---
Patient in room [facility] 354. I have received report from MEENA Huertas RN and had the opportunity to ask questions and assume patient care.
--- NOTE | 2019-04-23 06:37 | NUR ---
Problems reprioritized. Patient report given, questions answered & plan of care reviewed with AMARA Zelaya.
--- NOTE | 2019-04-23 07:36 | NUR ---
PER LAB AT 0735. UNABLE TO DRAW LABS. LAB TRIED 6 TIMES, NOT ENOUGH BLOOD FOR DRAW
[2019-04-23] MEDS: furosemide 40mg tablet PO SCH (08:00)
[2019-04-23] MEDS ORDERED: heparin 1,000unit/ml 10ml vial 10 ML IV ONE (08:00)
[2019-04-23] MEDS ORDERED: heparin 1,000 units/ml 10ml inj HE ONE ×2 (08:00)
[2019-04-23] MEDS ORDERED: normal saline 1000ml 250 ML IV PRN (08:00)
[2019-04-23] MEDS ORDERED: heparin 1,000 units/ml 10ml inj IV ONE (08:00)
[2019-04-23] MEDS: amLODIPine 5mg tablet PO SCH (08:00)
[2019-04-23] MEDS: lisinopril 20mg tablet PO SCH (08:00)
[2019-04-23] MEDS ORDERED: epoetin 20,000 units/ml inj IV ONE (08:00)
[2019-04-23] MEDS ORDERED: albumin (human) 25% 100ml IV 100 ML IV PRN (08:00)
[2019-04-23] MEDS: diltiazem CD 120mg capsule (once-daily) PO SCH (08:00)
[2019-04-23] MEDS: fludrocortisone acetate 0.1mg tablet PO SCH (08:30)
[2019-04-23] MEDS ORDERED: fludrocortisone acetate 0.1mg tablet PO SCH (08:30)
[2019-04-23 09:01] LABS: ALANINE AMINOTRANSFERASE 99 U/L (12-78); ALBUMIN 3.4 G/DL (3.4-5.0); ALKALINE PHOSPHATASE 491 IU/L (46-116); ANION GAP 19 (8-16); ASPARTATE AMINO TRANSFERASE 45 U/L (10-37); BILIRUBIN,TOTAL 0.7 MG/DL (0.1-1.0); BLOOD UREA NITROGEN 65 MG/DL (7-18); BUN/CREATININE RATIO 6.9 (5.4-32.0); CALCIUM 9.1 MG/DL (8.5-10.1); CHLORIDE 92 MMOL/L (99-107); CREATININE 9.48 MG/DL (0.60-1.10); GLUCOSE 336 MG/DL (70-104); MAGNESIUM 2.1 MG/DL (1.5-2.4); PHOSPHORUS 8.9 MG/DL (2.3-4.5); SODIUM 134 MMOL/L (135-145); TOTAL PROTEIN 6.7 G/DL (6.4-8.2); eGFR 7 ML/MIN
[2019-04-23 09:08] LABS: BASOPHILS # (AUTO) 0.1 X10'3 (0-0.2); BASOPHILS % (AUTO) 1.2 % (0-1); EOSINOPHILS # (AUTO) 0.9 X10'3 (0-0.9); EOSINOPHILS % (AUTO) 10.1 % (0-6); HEMATOCRIT 35.6 % (42.0-52.0); LYMPHOCYTES # (AUTO) 1.5 X10'3 (1.1-4.8); LYMPHOCYTES % (AUTO) 16.2 % (21-51); MEAN CORPUSCULAR HEMOGLOBIN 34.5 PG (27.0-31.0); MEAN CORPUSCULAR HGB CONC 33.8 g/dL (33.0-36.5); MEAN PLATELET VOLUME 8.4 FL (7.4-10.4); MONOCYTES # (AUTO) 0.6 X10'3 (0-0.9); MONOCYTES % (AUTO) 6.4 % (2-12); NEUTROPHILS % (AUTO) 66.1 % (42-75); PLATELET COUNT 170 X10'3 (140-440); RED BLOOD COUNT 3.49 X10'6 (4.70-6.10); RED CELL DISTRIBUTION WIDTH 17.6 % (11.5-14.5); WHITE BLOOD COUNT 9.1 X10'3 (4.5-11.0)
[2019-04-23] MEDS: heparin, porcine 5000 units/ml vial SQ SCH (09:09)
[2019-04-23 09:35] LABS: POTASSIUM 6.1 MMOL/L (3.5-5.1)
--- NOTE | 2019-04-23 10:41 | NUR ---
NO INSULIN AVAILABLE FOR THIS PT. SENT MESSAGE TO PHARMACY. WAITING FOR INSULIN TO CORRECT BS
--- NOTE | 2019-04-23 10:48 | NUR ---
CO SIGNED WITH DIALYSIS NURSE. HEPARIN 2.5ML SYRINGE SIGNED. WILL BE GIVING 1.9ML PER LUMEN
[2019-04-23 11:00] VITALS: BP 117/70
[2019-04-23] MEDS ORDERED: sodium polystyrene sulfonate 15gm/60ml oral suspension PO ONE ×2 (11:45→20:00)
[2019-04-23] MEDS ORDERED: INSU100I31 SUBCUT (11:59)
[2019-04-23] MEDS: calcium acetate 667mg (PhosLO) capsule PO SCH ×2 (12:53→18:00)
[2019-04-23] MEDS: insulin Lispro (HumaLOG) vial - multi-dose SQ SCH ×2 (13:38→19:50)
[2019-04-23 15:05] LABS: ALBUMIN 3.2 G/DL (3.4-5.0); ANION GAP 15 (8-16); BLOOD UREA NITROGEN 33 MG/DL (7-18); BUN/CREATININE RATIO 5.8 (5.4-32.0); CALCIUM 8.6 MG/DL (8.5-10.1); CHLORIDE 97 MMOL/L (99-107); CREATININE 5.72 MG/DL (0.60-1.10); GLUCOSE 341 MG/DL (70-104); POTASSIUM 3.6 MMOL/L (3.5-5.1); SODIUM 136 MMOL/L (135-145); TOTAL CARBON DIOXIDE 23.8 MMOL/L (24-32); eGFR 12 ML/MIN
[2019-04-23] MEDS ORDERED: minoxidil 2.5mg tablet PO SCH (16:00)
--- NOTE | 2019-04-23 16:45 | NUR ---
TRANSFERRED PT TO U
--- NOTE | 2019-04-23 16:50 | NUR ---
PHYLLIS RN HAD RECIEVED REPORT, PASSED ON TO ME. RECIEVED PT FROM 3 SURG VIA BED. VS STABLE. AGREE WITH PRIOR ASSESSMENT. ALERT AND ORIENTED X3. STATES " I AM LEAVING, GOING HOME TONIGHT". SITTER CAME WITH PT.
[2019-04-23 17:00] VITALS: BP 114/68
--- NOTE | 2019-04-23 18:00 | NUR ---
Patient in room PCU 3017. I have received report from Ottoniel MALONEY and had the opportunity to ask questions and assume patient care.
--- NOTE | 2019-04-23 18:35 | NUR ---
Problems reprioritized. Patient report given, questions answered & plan of care reviewed with AMARA GAGNON.
[2019-04-23 19:00] VITALS: BP 163/82
--- NOTE | 2019-04-23 20:00 | NUR ---
pt is agitated and is leaving AMA, discussed with pt the plan of care with himwhile using theuraouetic communication. pt has refused all 2000 and 2099 medications prior to leaving the hospital.
== END 2019-04-23 20:45 | disposition left against medical advice (07) | DRG 640 ==
LOC: ER 07:30 → ED HOLD 10:20 → SUR 3N 16:57 → PCU 3S 04-23 16:52
PROC: 5A1D70Z Performance of Urinary Filtration, Intermittent, Less than 6 Hours Per Day (ICD-10-PCS; principal; 2019-04-21)
PROC: 5A1D70Z Performance of Urinary Filtration, Intermittent, Less than 6 Hours Per Day (ICD-10-PCS; 2019-04-23)
DX: E87.5 Hyperkalemia (principal); N18.6 End stage renal disease; I13.2 Hypertensive heart and chronic kidney disease with heart failure and with stage 5 chronic kidney disease, or end stage renal disease; E10.22 Type 1 diabetes mellitus with diabetic chronic kidney disease; E78.00 Pure hypercholesterolemia, unspecified; F12.90 Cannabis use, unspecified, uncomplicated; F15.90 Other stimulant use, unspecified, uncomplicated; F17.200 Nicotine dependence, unspecified, uncomplicated; Z53.29 Procedure and treatment not carried out because of patient's decision for other reasons; I50.9 Heart failure, unspecified; Z79.4 Long term (current) use of insulin; Z99.2 Dependence on renal dialysis; Z79.899 Other long term (current) drug therapy; Z56.0 Unemployment, unspecified
CPT/HCPCS: 36415; 80048; 80053; 80320; 82024; 82088; 82948; 83036; 83735; 84100; 84132; 85025; 87081; 93005; 99285; G0257; G0378; J1644; J1815